=== PATIENT | female | born 1985 | race Two or more races ===

== ENCOUNTER → 2023-10-11 | Outpatient (CLI) | payer MEDICAID ==
[2023-10-11 14:09] LABS: Basophils # (auto) 0.1 10 ^3/uL (0-0.2); Basophils % (auto) 0.7 % (0.0-2.0); Eosinophils # (auto) 0.1 10 ^3/uL (0-0.8); Eosinophils % (auto) 0.6 % (0.0-7.0); Hematocrit 33.9 % (36.0-46.0); Hemoglobin 11.2 g/dL (12.2-16.2); Lymphocytes # (auto) 2.9 10 ^3/uL (0.4-5.4); Lymphocytes % (auto) 33.2 % (10.0-50.0); Mean Corpuscular Hemoglobin 29.6 pg (28.0-32.0); Mean Corpuscular Hgb Conc. 33.1 g/dL (32.0-36.0); Mean Corpuscular Volume 89.3 fL (80.0-100.0); Monocytes % (auto) 11.7 % (0.0-12.0); Neutrophils # (auto) 4.7 10 ^3/uL (1.6-8.6); Neutrophils % (auto) 53.8 % (37.0-80.0); Nucleated Red Blood Cells % 0.3 %; Red Cell Distribution Width 14.4 % (11.8-14.3); White Blood Cell 8.7 10^3/uL (4.4-10.8)
[2023-10-11 14:23] LABS: Large Platelets FEW; Platelet Estimate Decreased; RBC Morphology Normal
[2023-10-12 08:06] LABS: RPR Non Reactive (Non Reactive)
[2023-10-12 13:07] LABS: Chlamydia Trachomatis, NAA Negative (Negative); Neisseria gonorrhoeae, NAA Negative (Negative)
== END | disposition home or self-care (01) ==
LOC: LAB 13:24
PROVIDERS: ATTEND Obstetrics & Gynecology
DX: Z34.80 Encounter for supervision of other normal pregnancy, unspecified trimester (principal); Z72.51 High risk heterosexual behavior
CPT/HCPCS: 36415; 85025; 86592

== ENCOUNTER 2023-10-19 18:50 | Observation (INO) | payer MEDICAID ==
[~2023-10-19] VITALS: Ht 157.5 cm; Wt 71.2 kg
[2023-10-20] MEDS ORDERED: DOCU-265 PO (19:08)
[2023-10-20] MEDS ORDERED: PREN-96 PO (19:08)
[2023-10-20] MEDS ORDERED: IBU600T PO (19:08)
== END 2023-10-19 21:40 | disposition home or self-care (01) ==
LOC: LDRP 18:50
PROVIDERS: ADMIT Obstetrics & Gynecology; ATTEND Obstetrics & Gynecology
DX: O48.0 Post-term pregnancy (principal); O62.9 Abnormality of forces of labor, unspecified; Z3A.40 40 weeks gestation of pregnancy
CPT/HCPCS: 59025; 76818; 81002; 94760; G0378

== ENCOUNTER 2023-10-20 02:40 | Inpatient (IN) | payer MEDICAID ==
[~2023-10-20] VITALS: Ht 157.5 cm; Wt 71.2 kg
[2023-10-20] MEDS ORDERED: LIDOCAINE 2%HCL (LOCAL ANESTH.) INJ 20ML MDV IJ PRN (03:00)
[2023-10-20] MEDS ORDERED: ONDANSETRON HCL 4 MG/2 ML VIAL IV PRN (03:15)
[2023-10-20] MEDS ORDERED: DIPHENOXYLATE W/ATROPINE 2.5 MG TAB PO PRN (03:15)
[2023-10-20] MEDS ORDERED: CARBOPROST TROMETHAMINE 250 MCG/1ML VIAL IM PRN (03:15)
[2023-10-20] MEDS ORDERED: miSOPROStol 100 mcg TAB SL PRN (03:15)
[2023-10-20] MEDS ORDERED: miSOPROStol 100 mcg TAB PR PRN (03:15)
[2023-10-20] MEDS: PHISODERM TOP SOLN 240ML BTL TOP PRN (03:39)
[2023-10-20] MEDS: LACTATED RINGER'S 1,000 ML IV SCH (03:39)
[2023-10-20] MEDS: WITCH HAZEL-GLYCERIN PAD TOP PRN (03:39)
[2023-10-20] MEDS: DERMOPLAST 60ML BOTTLE TOP PRN (03:39)
[2023-10-20 03:45] LABS: Amphetamine Screen, Urine Neg (NEGATIVE); Barbiturate Scree,Urine Neg (NEGATIVE); Benzodiazephine Screen, Urine Neg (NEGATIVE); Cocaine Screen, Urine Neg (NEGATIVE)
[2023-10-20] MEDS ORDERED: NALOXONE HCL 0.4 MG/ML VIAL IV ONE (03:45)
[2023-10-20] MEDS ORDERED: ePHEDrine SULFATE 50 MG/ML AMP IV ONE (03:45)
[2023-10-20 03:46] LABS: Cannabinoid Screen, Urine Neg (NEGATIVE); Opiate Scree,Urine Neg (NEGATIVE); Phencyclidine Screen, Urine Neg (NEGATIVE)
[2023-10-20 03:49] LABS: Alanine Aminotransferase 42 U/L (7-40); Alkaline Phosphatase 185 U/L (46-116); Anion Gap 12 (5-15); Aspartate Aminotransferase 66 U/L (13-40); Blood Urea Nitrogen 7 mg/dL (9-23); Calcium 9.9 mg/dL (8.7-10.4); Carbon Dioxide 19 mmol/L (20-30); Chloride 105 mmol/L (98-107); Glucose 96 mg/dL (74-106); Sodium 136 mmol/L (136-145)
[2023-10-20 03:50] LABS: Bilirubin, Total 0.5 mg/dL (0.2-1.0); Total Protein 6.9 g/dL (5.7-8.2)
[2023-10-20 03:55] LABS: INR 0.93 (0.9-1.15); Partial Thromboplastin Time 26.2 SEC (24.5-34.5); Prothrombin Time 9.9 sec (9.3-11.8)
[2023-10-20 04:06] LABS: Urine Bacteria FEW /hpf (None Seen); Urine Blood Negative /uL (Negative); Urine Clarity Clear (Clear); Urine Color Light-Yellow (Yellow); Urine Protein, UAD Negative (Negative); Urine Specific Gravity 1.008 (1.001-1.035); Urine Urobilinogen Normal (Negative); Urine WBC <1 /hpf (0 - 5); Urine pH 6.5 (5.0-9.0)
[2023-10-20 04:12] LABS: Basophils # (auto) 0.1 10 ^3/uL (0-0.2); Basophils % (auto) 0.4 % (0.0-2.0); Eosinophils # (auto) 0.1 10 ^3/uL (0-0.8); Eosinophils % (auto) 0.5 % (0.0-7.0); Hemoglobin 11.8 g/dL (12.2-16.2); Lymphocytes # (auto) 3.2 10 ^3/uL (0.4-5.4); Lymphocytes % (auto) 26.2 % (10.0-50.0); Mean Corpuscular Hemoglobin 29.5 pg (28.0-32.0); Mean Corpuscular Hgb Conc. 32.9 g/dL (32.0-36.0); Mean Corpuscular Volume 89.8 fL (80.0-100.0); Monocytes # (auto) 1.1 10 ^3/uL (0-1.3); Monocytes % (auto) 9.3 % (0.0-12.0); Neutrophils # (auto) 7.9 10 ^3/uL (1.6-8.6); Neutrophils % (auto) 63.6 % (37.0-80.0); Nucleated Red Blood Cells % 0.2 %; Red Blood Cells 4.01 10^6/uL (4.0-5.20); Red Cell Distribution Width 14.4 % (11.8-14.3); White Blood Cell 12.4 10^3/uL (4.4-10.8)
[2023-10-20] MEDS: LACTATED RINGER'S 1,000 ML IV ONE (04:14)
[2023-10-20] MEDS: ROPIVACAINE HCL 200 ML ONE (05:32)
[2023-10-20 05:59] LABS: Giant Platelets Few; Large Platelets MODERATE; Platelet Estimate Decreased
[2023-10-20] MEDS: MINERAL OIL TOPICAL 10ml TOP ONE (07:45)
[2023-10-20] MEDS ORDERED: CARBOPROST TROMETHAMINE 250 MCG/1ML VIAL IM ONE (09:05)
[2023-10-20] MEDS: METHYLERGONOVINE MALEATE 0.2 MG/ML AMP IM ONE (09:07)
[2023-10-20] MEDS: LACT. RINGERS/OXYTOCIN 20UNITS 500 ML IV ONE ×2 (09:18→09:55)
[2023-10-20] MEDS ORDERED: ONDANSETRON ODT 4 MG TAB PO PRN (09:30)
[2023-10-20] MEDS ORDERED: ACETAMINOPHEN 325 MG TAB PO PRN (09:30)
[2023-10-20 11:00] VITALS: BP 123/70; PULSE 78; RESP 16; TEMP 98.3; O2SAT 97
[2023-10-20 11:55] VITALS: PULSE 78; RESP 18; O2SAT 99
[2023-10-20] MEDS: IBUPROFEN 600 MG TAB PO PRN (12:14)
[2023-10-20 15:00] VITALS: BP 108/65; PULSE 78; RESP 16; TEMP 98.3; O2SAT 97
[2023-10-20 18:57] VITALS: BP 99/55; PULSE 87; RESP 16; TEMP 97.7; O2SAT 97
[2023-10-20] MEDS ORDERED: IBU600T PO (19:08)
[2023-10-20] MEDS ORDERED: PREN-96 PO (19:08)
[2023-10-20] MEDS ORDERED: DOCU-265 PO (19:08)
[2023-10-20] MEDS ORDERED: OXYTOCIN 10UNIT/ML 1ML VIAL IV ONE (20:07)
[2023-10-20] MEDS: DOCUSATE SOD 100 MG CAP PO SCH (22:00)
[2023-10-20 22:56] VITALS: BP 115/57; PULSE 74; RESP 16; TEMP 98.1; O2SAT 99
[2023-10-21 03:00] VITALS: BP 112/59; PULSE 75; RESP 16; TEMP 98.2; O2SAT 98
[2023-10-21 07:02] VITALS: BP 104/50; PULSE 86; RESP 17; TEMP 98.2; O2SAT 98
[2023-10-21 07:07] LABS: RPR Non Reactive (Non Reactive)
[2023-10-21 08:53] LABS: Basophils # (auto) 0 10 ^3/uL (0-0.2); Basophils % (auto) 0.2 % (0.0-2.0); Eosinophils # (auto) 0 10 ^3/uL (0-0.8); Eosinophils % (auto) 0.2 % (0.0-7.0); Hematocrit 28.9 % (36.0-46.0); Hemoglobin 9.4 g/dL (12.2-16.2); Lymphocytes # (auto) 3.5 10 ^3/uL (0.4-5.4); Lymphocytes % (auto) 16.5 % (10.0-50.0); Mean Corpuscular Hemoglobin 29.2 pg (28.0-32.0); Mean Corpuscular Hgb Conc. 32.6 g/dL (32.0-36.0); Mean Corpuscular Volume 89.7 fL (80.0-100.0); Monocytes # (auto) 1.8 10 ^3/uL (0-1.3); Monocytes % (auto) 8.3 % (0.0-12.0); Neutrophils # (auto) 15.8 10 ^3/uL (1.6-8.6); Neutrophils % (auto) 74.8 % (37.0-80.0); Nucleated Red Blood Cells % 0.1 %; Red Blood Cells 3.22 10^6/uL (4.0-5.20); Red Cell Distribution Width 14.3 % (11.8-14.3); White Blood Cell 21.1 10^3/uL (4.4-10.8)
[2023-10-21] MEDS ORDERED: FER325T PO (10:42)
[2023-10-22 19:06] LABS: Treponema pallidum Ab (FTA-Ab) Non Reactive (Non Reactive)
== END 2023-10-21 11:30 | disposition home or self-care (01) | DRG 560 ==
LOC: LDRP 02:40 → OBSVTOIN 02:55 → LDRP 04:03
PROVIDERS: ADMIT Obstetrics & Gynecology; ATTEND Obstetrics & Gynecology
PROC: 10E0XZZ Delivery of Products of Conception, External Approach (ICD-10-PCS; principal; 2023-10-20)
PROC: 0KQM0ZZ Repair Perineum Muscle, Open Approach (ICD-10-PCS; 2023-10-20)
PROC: 3E0R3BZ Introduction of Anesthetic Agent into Spinal Canal, Percutaneous Approach (ICD-10-PCS; 2023-10-20)
PROC: 00HU33Z Insertion of Infusion Device into Spinal Canal, Percutaneous Approach (ICD-10-PCS; 2023-10-20)
DX: O48.0 Post-term pregnancy (principal); Z37.0 Single live birth; R71.0 Precipitous drop in hematocrit; O62.2 Other uterine inertia; O77.0 Labor and delivery complicated by meconium in amniotic fluid; O70.1 Second degree perineal laceration during delivery; Z3A.40 40 weeks gestation of pregnancy
CPT/HCPCS: 36415; 59025; 59409; 62282; 80053; 80307; 81001; 81002; 85025; 85610; 85730; 86592; 86850; 86900; 86901; 94760; 96360; 96361; 96365; 96366; 96372; G0378; J2590